=== PATIENT | male | born 1990 | race Hispanic/Latino ===

== ENCOUNTER 2021-03-12 19:49 | Emergency (ER) | payer OTHER ==
[~2021-03-12] VITALS: Ht 172.7 cm; Wt 93.4 kg
[2021-03-12] MEDS ORDERED: KETOROLAC 30MG VIAL (30MG/ML) IM SCH (20:30)
[2021-03-12] MEDS ORDERED: KETOROLAC 30MG VIAL (30MG/ML) ONE (20:44)
[2021-03-12] MEDS ORDERED: CYCL5TAB PO (22:25)
[2021-03-12] MEDS ORDERED: IBUP-2070 PO (22:25)
[2021-03-12 22:48] VITALS: BP 128/83
== END 2021-03-12 22:53 | disposition home or self-care (01) ==
LOC: EDH 19:49
DX: S16.1XXA Strain of muscle, fascia and tendon at neck level, initial encounter (principal); M54.50 Low back pain, unspecified; R51.9 Headache, unspecified; Z79.1 Long term (current) use of non-steroidal anti-inflammatories (NSAID); V43.52XA Car driver injured in collision with other type car in traffic accident, initial encounter; Y93.89 Activity, other specified; Y92.89 Other specified places as the place of occurrence of the external cause; Y99.8 Other external cause status
CPT/HCPCS: 70450; 72100; 72125; 96372; 99284; J1885